=== PATIENT | female | born 2000 | race African-American/Black ===

== ENCOUNTER 2019-01-02 18:18 | Observation (INO) | payer MEDICAID ==
[~2019-01-02] VITALS: Ht 167.6 cm; Wt 64.4 kg
[2019-01-02] MEDS ORDERED: PNV1TABL50 MT (21:00)
== END 2019-01-02 20:15 | disposition home or self-care (01) ==
LOC: 8 EST LDRP 18:18
PROVIDERS: ADMIT Obstetrics & Gynecology; ATTEND Obstetrics & Gynecology
DX: O62.9 Abnormality of forces of labor, unspecified (principal); Z3A.40 40 weeks gestation of pregnancy; O48.0 Post-term pregnancy
CPT/HCPCS: 76805; 76818; 99281; G0378

== ENCOUNTER 2019-01-11 19:30 | Inpatient (IN) | payer MEDICAID ==
[~2019-01-11] VITALS: Ht 167.6 cm; Wt 64.4 kg
[~2019-01-11 19:30] MED LIST: PNV1TABL50 MT
[2019-01-11] MEDS ORDERED: LIDOCAINE HCL 1% 20ML VIAL (Pyxis) INJ INFIL PRN (20:30)
[2019-01-11] MEDS ORDERED: BUTORPHANOL TARTRATE 2 MG/ML VIAL IV PRN (20:30)
[2019-01-11] MEDS ORDERED: METHYLERGONOVINE MALEATE 0.2 MG/ML IM PRN (20:30)
[2019-01-11] MEDS ORDERED: CARBOPROST TROMETHAMINE 250 MCG/ML AMPUL IM PRN (20:30)
[2019-01-11] MEDS ORDERED: MISOPROSTOL 100MCG TABLET VG PRN (20:30)
[2019-01-11] MEDS ORDERED: NALOXONE HCL 0.4 MG/ML 1ML VIAL IM PRN (20:30)
[2019-01-11] MEDS ORDERED: FERROUS SULFATE (20:43)
[2019-01-11] MEDS ORDERED: PRENATAL VITAMINS (20:43)
[2019-01-11 20:59] LABS: CLARITY URINE CLOUDY (CLEAR); COLOR URINE YELLOW (YELLOW); KETONES URINE 1+ (NEGATIVE); LEUKOCYTE ESTERASE URINE 2+ (NEGATIVE); NITRITE URINE NEGATIVE (NEGATIVE); OCCULT BLOOD URINE 2+ (NEGATIVE); PROTEIN URINE TRACE (NEGATIVE); SPECIFIC GRAVITY URINE 1.028 (1.005-1.030); UROBILINOGEN URINE 0.2 E.U./dL (0.2-1.0)
[2019-01-11 21:01] LABS: BASOPHILS % 0.2 % (0.0-2.0); EOSINOPHILS % 0.2 % (0.0-5.0); HEMOGLOBIN. 11.3 g/dL (12.0-16.0); LYMPHOCYTES % 8.5 % (20.0-50.0); MEAN CORPUSCULAR HEMOGLOBIN 31.7 pg (28.0-32.0); MEAN CORPUSCULAR VOLUME 92.4 fL (81.0-99.0); MEAN PLATELET VOLUME 9.2 fl (7.4-10.4); MONOCYTES % 7.3 % (2.0-8.0); NEUTROPHILS % 83.8 % (40.0-76.0); PLATELET 192 x1000/uL (130-400); RED BLOOD CELL COUNT 3.57 mill/uL (4.2-5.4); RED CELL DISTRIBUTION WIDTH 14.2 % (11.6-14.6)
[2019-01-11 21:07] LABS: INR 0.9; PARTIAL THROMBOPLASTIN TIME 28.7 sec (23.4-31.0); PROTHROMBIN TIME 9.7 sec (9.6-11.0)
[2019-01-11 21:12] LABS: *AMPHETAMINES SCREEN URINE NEGATIVE (NEGATIVE); *BARBITURATES SCREEN URINE NEGATIVE (NEGATIVE); *BENZODIAZEPINES SCREEN URINE NEGATIVE (NEGATIVE); *COCAINE SCREEN URINE NEGATIVE (NEGATIVE); CANNABINOID URINE SCREEN NEGATIVE (NEGATIVE)
[2019-01-11 21:13] LABS: METHADONE URINE SCREEN NEGATIVE (NEGATIVE); OPIATES URINE SCREEN NEGATIVE (NEGATIVE); PHENCYCLIDINE URINE SCREEN NEGATIVE (NEGATIVE)
[2019-01-11] MEDS: LACTATED RINGERS 1,000 ML IV SCH (21:34)
[2019-01-11 21:41] LABS: HEPATITIS B SURFACE ANTIGEN NEGATIVE
[2019-01-11] MEDS: DEXT 5%/LR + PITOCIN 20UNITS/L 1,000 ML IV SCH (23:07)
[2019-01-12] MEDS: LACTATED RINGERS 1,000 ML IV SCH ×2 (02:41→05:55)
[2019-01-12] MEDS ORDERED: MINERAL OIL 30ML BOTTLE PO PRN (03:15)
[2019-01-12] MEDS ORDERED: PENICILLIN G POTASSIUM 2.5 MMU in DEXTROSE 5% WATER 50 ML IV SCH ×2 (04:00→08:00)
[2019-01-12] MEDS ORDERED: PENICILLIN G POTASSIUM 5 MMU in DEXT 5% WATER 100 ML IV NR ×3 (04:00)
[2019-01-12] MEDS ORDERED: ROPIVACAINE HCL/PF EPIDURAL 200 ML EPI SCH (04:45)
[2019-01-12] MEDS ORDERED: ONDANSETRON HCL 4MG/2ML INJ IV SCH (05:00)
[2019-01-12] MEDS ORDERED: METOCLOPRAMIDE HCL 10MG/2ML VIAL IV ONE ×2 (06:00→06:15)
[2019-01-12] MEDS: DEXT 5%/LR + PITOCIN 20UNITS/L 1,000 ML IV SCH (10:37)
[2019-01-12 12:00] VITALS: BP 114/66
[2019-01-12 13:00] VITALS: BP 106/65
[2019-01-12] MEDS ORDERED: DEXT 5%/LR + PITOCIN 20UNITS/L 1,000 ML IV SCH (13:56)
[2019-01-12] MEDS ORDERED: IBUPROFEN 400MG TABLET PO PRN (14:00)
[2019-01-12] MEDS ORDERED: IBUPROFEN 800MG TABLET PO PRN (14:00)
[2019-01-12] MEDS ORDERED: LANOLIN OINT 7GM TUBE TOP PRN (14:00)
[2019-01-12] MEDS ORDERED: RHO(D) IMMUNE GLOBULIN 300 MCG/SYR IM PRN (14:00)
[2019-01-12] MEDS ORDERED: METHYLERGONOVINE MALEATE 0.2 MG/ML IM PRN (14:00)
[2019-01-12 17:04] VITALS: BP 113/63
[2019-01-12 20:00] VITALS: BP 118/65
[2019-01-13 04:00] VITALS: BP 106/65
[2019-01-13 06:55] LABS: BASOPHILS % 0.2 % (0.0-2.0); EOSINOPHILS % 0.1 % (0.0-5.0); HEMATOCRIT. 27.2 % (36.0-48.0); HEMOGLOBIN. 9.3 g/dL (12.0-16.0); LYMPHOCYTES % 10.7 % (20.0-50.0); MEAN CORPUSCULAR HEMOGLOBIN 31.4 pg (28.0-32.0); MEAN CORPUSCULAR VOLUME 92.1 fL (81.0-99.0); MEAN PLATELET VOLUME 9.1 fl (7.4-10.4); MONOCYTES % 7.6 % (2.0-8.0); NEUTROPHILS % 81.4 % (40.0-76.0); PLATELET 170 x1000/uL (130-400); RED BLOOD CELL COUNT 2.96 mill/uL (4.2-5.4); RED CELL DISTRIBUTION WIDTH 14.4 % (11.6-14.6)
[2019-01-13 08:00] VITALS: BP 101/65
[2019-01-13] MEDS ORDERED: PRENATAL VIT/FE FUMARATE/FA TABLET PO SCH (09:00)
[2019-01-13 16:51] VITALS: BP 117/66
[2019-01-13 19:44] VITALS: BP 132/86
[2019-01-14 04:10] VITALS: BP 114/54
[2019-01-14] MEDS ORDERED: TETANUS, DIPHTHERIA, PERTUSSIS VAC/PF 0.5ML (>7YR OLD) IM ONE (06:30)
[2019-01-14 08:10] VITALS: BP 106/72
== END 2019-01-14 12:30 | disposition home or self-care (01) | DRG 560 ==
LOC: OBSVTOIN 19:30 → 8 EST LDRP 19:30 → 8EST 01-12 12:00
PROVIDERS: ADMIT Obstetrics & Gynecology; ATTEND Obstetrics & Gynecology
PROC: 10E0XZZ Delivery of Products of Conception, External Approach (ICD-10-PCS; principal; 2019-01-12)
PROC: 3E0R3BZ Introduction of Anesthetic Agent into Spinal Canal, Percutaneous Approach (ICD-10-PCS; 2019-01-12)
PROC: 00HU33Z Insertion of Infusion Device into Spinal Canal, Percutaneous Approach (ICD-10-PCS; 2019-01-12)
DX: O48.0 Post-term pregnancy (principal); D64.9 Anemia, unspecified; O77.0 Labor and delivery complicated by meconium in amniotic fluid; O99.02 Anemia complicating childbirth; O70.0 First degree perineal laceration during delivery; O69.81X0 Labor and delivery complicated by cord around neck, without compression, not applicable or unspecified; Z37.0 Single live birth; Z3A.41 41 weeks gestation of pregnancy
CPT/HCPCS: 36415; 80305; 86592; 86703; 86762; 86850; 86900; 87340; 90715; 99281; G0378; J0595; J2405; J2540; J2590; J2765; J2795; J3490; J7060